=== PATIENT | male | born 1955 | race Caucasian/White ===

== ENCOUNTER 2016-10-14 11:23 | Outpatient (CLI) | payer OTHER ==
[2013-09-04 16:47] VITALS: BP 119/49
--- NOTE | 2016-10-14 15:03 | Diagnostic Imaging Report ---
HITESH ZURITA [facility] [address] [facility].[address] [id number] Report Submission Date: Oct 14, 2016 2:35:10 PM CDT Patient Study Name: KEZIA ONTIVEROS Date: Oct 14, 2016 11:41:34 AM CDT Modality Type: US Gender: M Description: UNILAT LTD STDY EXT VEINS : 57 [facility]: [facility] Physician: HITESH ZURITA Examination: Ultrasound vein History: Calf swelling Findings: Sonographic evaluation of the left lower extremity venous system from the groin to the popliteal fossa inclusive. Normal compressibility. No luminal filling defect. Normal waveforms and response to augmentation. No popliteal region fluid collection. Calf region soft tissue swelling. Impression: No evidence for deep venous thrombosis. Electronically signed on Oct 14, 2016 2:35:10 PM CDT by: Frederick ENRIQUEZ
== END 2016-10-14 11:24 ==
LOC: RAD 11:23
PROVIDERS: ATTEND Physician Assistant
DX: M79.605 Pain in left leg (principal); M79.89 Other specified soft tissue disorders
CPT/HCPCS: 93971

== ENCOUNTER 2017-01-26 10:58 | Outpatient (CLI) | payer OTHER ==
[2013-09-04 16:47] VITALS: BP 119/49
== END 2017-01-26 11:05 ==
LOC: LAB 10:58
PROVIDERS: ATTEND Family Medicine
DX: E29.1 Testicular hypofunction (principal)
CPT/HCPCS: 36415; 84403

== ENCOUNTER 2017-06-16 10:14 | Outpatient (CLI) | payer OTHER ==
[2013-09-04 16:47] VITALS: BP 119/49
[2017-06-16 10:59] LABS: eGFR (African) > 60; eGFR (Non-African) > 60
== END 2017-06-16 10:20 ==
LOC: LAB 10:14
PROVIDERS: ATTEND Family Medicine
DX: E11.9 Type 2 diabetes mellitus without complications (principal); Z12.5 Encounter for screening for malignant neoplasm of prostate; E29.1 Testicular hypofunction
CPT/HCPCS: 36415; 80053; 80061; 82043; 83036; 84153; 84403; G0103

== ENCOUNTER 2017-11-18 14:09 | Outpatient (CLI) | payer OTHER ==
[2013-09-04 16:47] VITALS: BP 119/49
--- NOTE | 2017-11-18 19:07 | Diagnostic Imaging Report ---
DAMON POLANCO [facility] [address] [address] Report Submission Date: Nov 18, 2017 2:54:14 PM CDT Patient Study Name: KEZIA ONTIVEROS Date: Nov 18, 2017 2:23:37 PM CDT Modality Type: DX Gender: M Description: SHOULDER : 57 Institution: [facility] Physician: DAMON POLANCO Left shoulder History: Chronic pain Three views of the left shoulder were obtained which demonstrate severe narrowing of glenohumeral joint space. There is only slight movement into internal and external rotation. There is a large osteophyte along the inferomedial left humeral head. Hypertrophic findings of the acromioclavicular joint are present. There is a 6 mm ossific density projecting superiorly between the glenoid and humeral head which may represent a small loose body or perhaps tendinous calcification. Additionally, projecting inferiorly adjacent to the humeral neck, there is a 1.5 cm ossific density which may represent a loose body. Impression: Severely advanced osteoarthritis of the glenohumeral joint with apparent articular bodies as described. There is little movement between internal and external rotation suggesting that the shoulder may be nearly frozen. Electronically signed on Nov 18, 2017 2:54:14 PM CDT by: Isaura ENRIQUEZ
== END 2017-11-18 14:10 ==
LOC: RAD 14:09
PROVIDERS: ATTEND Family Medicine
DX: M25.512 Pain in left shoulder (principal)
CPT/HCPCS: 73030

== ENCOUNTER 2017-11-22 09:01 | Day surgery (SDC) | payer OTHER ==
[2013-09-04 16:47] VITALS: BP 119/49
[~2017-11-22 09:01] MED LIST: LACTATED RINGERS 1,000 ML IV.SOLN IV ONE; LIDOCAINE HCL/PF 2% 100 MG/5 ML VIAL IJ ONE; PROPOFOL 200 MG/20 ML VIAL IV ONE; SALINE FLUSH 10 ML DISP.SYRIN IVF ONE
--- NOTE | 2017-11-28 09:01 | GI Report ---
REFERRING PHYSICIAN: Dr. Marcel Andrade CATERING AND EVENTS MANAGER: Jimmie Mercado MD PROCEDURE MEDICATION: Propofol as per anesthesia. INDICATIONS: Patient is a 62-year-old man who has had polyps in the past. He has morbid obesity. He weighs 370 pounds. He has a CPAP. He has metabolic syndrome, diabetes, and hypertension. He is referred for a colonoscopy. His last colonoscopy was 10 years ago. PROCEDURE PERFORMED: Colonoscopy and polypectomy. PROCEDURE: An Olympus video colonoscope was advanced to the rectum. Prep was fair. A very atonic redundant colon. He does have diverticular disease in the sigmoid and descending colon. We had to lavage many areas and maneuvering to straighten out the colon to reach the cecum. Again, there is still residual dark fluid covering the wall in the cecum that we lavaged. You could see the appendiceal orifice. The patient does have this linear polyp around a fold that is sessile and it is maybe 3 mm wide by about 1.5 cm long, which looks somewhat villous in appearance. We took 4 pieces off of it to submit to pathology. We debulked it possibly somewhere from 60% to 80% pending on the cautery effect on residual. On slow withdrawal, again, there still was dark fluid. Visibility was not great. No additional lesions were noted but it was not a well prepped colon. FINDINGS: 1. Bothersome sessile lesion in the cecum that we piecemealed and maybe removed 60% to 80% of. 2. Moderate diverticular disease of the colon. 3. A very atonic redundant colon with poor prep. 4. Morbid obesity. RECOMMENDATIONS: 1. If there is cancer in the polyp section, he either needs a mucosal resection versus surgery, though he is a high-risk surgery. 2. If it is dysplasia but no cancer, then re-looking in 6 to 12 months with a little bit better prep where they could do a mucosal resection would be a consideration or redoing here with a better prep to see how much additional we can get out. cc: Dr. Marcel ENRIQUEZ
== END 2017-11-22 09:02 ==
LOC: OPSURG 09:01
PROVIDERS: ATTEND Internal Medicine Gastroenterology
DX: D12.0 Benign neoplasm of cecum (principal); K57.30 Diverticulosis of large intestine without perforation or abscess without bleeding; K59.8 Other specified functional intestinal disorders; E66.01 Morbid (severe) obesity due to excess calories; E88.81 Metabolic syndrome and other insulin resistance; E11.9 Type 2 diabetes mellitus without complications; I10 Essential (primary) hypertension
CPT/HCPCS: 45385; J2001; J2704; J7120; S1016

== ENCOUNTER 2018-05-09 08:16 | Outpatient (CLI) | payer OTHER ==
[2013-09-04 16:47] VITALS: BP 119/49
[2018-05-09 09:15] LABS: eGFR (Non-African) > 60
== END 2018-05-09 08:30 ==
LOC: LAB 08:16
PROVIDERS: ATTEND Family Medicine
DX: E11.9 Type 2 diabetes mellitus without complications (principal); E29.1 Testicular hypofunction
CPT/HCPCS: 36415; 80053; 80061; 82043; 83036; 84403

== ENCOUNTER 2018-05-30 07:32 | Day surgery (SDC) | payer OTHER ==
[2013-09-04 16:47] VITALS: BP 119/49
[2018-05-30] MEDS ORDERED: PROPOFOL 200 MG/20 ML VIAL IV ONE (08:48)
[2018-05-30] MEDS ORDERED: LACTATED RINGERS 1,000 ML IV.SOLN IV ONE (08:48)
--- NOTE | 2018-05-30 12:51 | GI Report ---
REFERRING PHYSICIAN: Dr. Marcel Andrade MATERIAL REQUIREMENTS PLANNING MANAGER: Jimmie Mercado MD PROCEDURE MEDICATION: Propofol as per anesthesia. INDICATIONS: This is a 62-year-old man who had a polyp last year in 2018 in November in the cecum. It was a sessile polyp. It was piecemeal removed with 6 or so pieces. It was not felt to be completely removed. The prep was extremely poor. The pathology came back as superficial fragments of tubulovillous adenoma that was negative for high-grade dysplasia. At the time, we discussed options of doing mucosal resection versus a surgical resection versus re-looking 6 to 12 months later. He was also informed that he needed to be on a several-day prep. Patient has morbid obesity. His weight is 374 pounds. He has metabolic syndrome with diabetes, hyperlipidemia, and hypertension. Patient comes back for a follow up. On exam before the procedure, again, he weighs 374 pounds. Lungs with decreased breath sounds. Heart sounds are distant. PROCEDURE PERFORMED: Colonoscopy with polypectomy. PROCEDURE: An Olympus video colonoscope was advanced to the rectum. Again, the prep was fair. A very atonic redundant colon. It took some nurse compression to reach the cecum. There still was some residual in the cecum, though much less than a year ago. Again, there is kind of a linear polyp going along a fold and it was removed in 4 pieces. A couple of small areas of residual we applied a small amount of cautery to cauterize the remaining tissue. On slow withdrawal, an atonic redundant colon and again, poor prep, a few diverticula in the sigmoid colon. No obvious lesions were noted but, again, small flat lesions could be missed when the prep is poor. Patient tolerated the procedure well respiratory mueller. FINDINGS: Again, a linear polyp in the cecum. This time we removed most of the residual and did a little cautery to some small areas of residual tissue. RECOMMENDATIONS: 1. He needs to cut back on carbohydrates and calories in his diet. He is a huge health risk. 2. Pending the pathology of the polyp, would have this looked at again in 3 years. 3. Next time he needs to be on a 3 or 4 day prep of liquids to get cleared out better. cc: Dr. Marcel ENRIQUEZ
== END 2018-05-30 09:50 | disposition home or self-care (01) ==
LOC: OPSURG 07:32
PROVIDERS: ATTEND Internal Medicine Gastroenterology
DX: D12.0 Benign neoplasm of cecum (principal); E66.01 Morbid (severe) obesity due to excess calories; E88.81 Metabolic syndrome and other insulin resistance; I10 Essential (primary) hypertension; E11.9 Type 2 diabetes mellitus without complications; E78.5 Hyperlipidemia, unspecified
CPT/HCPCS: 45385; J2704; J7120; S1016

== ENCOUNTER 2018-11-24 13:54 | Outpatient (CLI) | payer OTHER ==
[2013-09-04 16:47] VITALS: BP 119/49
[2018-11-24 16:55] LABS: BASOPHILS % 0.5 % (0.0-1.5); NEUTROPHILS # 4.6 # k/uL (1.4-7.7)
[2018-11-24 16:59] LABS: eGFR (Non-African) > 60
[2018-11-24 17:15] LABS: A1C 7.5 % (<5.7)
== END 2018-11-24 14:05 ==
LOC: LAB 13:54
PROVIDERS: ATTEND Family Medicine
DX: R50.9 Fever, unspecified (principal)
CPT/HCPCS: 36415; 80053; 83036; 85025